=== PATIENT | female | born 1990 | race Caucasian/White ===

== ENCOUNTER 2017-01-09 09:58 | Emergency (ER) | payer MEDICAID, OTHER ==
[~2017-01-09] VITALS: Ht 160 cm; Wt 60.0 kg
[2017-01-09 09:59] VITALS: BP 127/70; PULSE 80; RESP 16; TEMP 98; O2SAT 96
--- NOTE | 2017-01-09 10:49 | PD ---
HPI Chief Complaint: Related Problem Time Seen by Provider: 10:20 Travel History International Travel<30 days: No Contact w/Intl Traveler<30days: No Traveled to known affect area: No History of Present Illness HPI This is a 26-year-old female who presents to the emergency department with bleeding in the setting of early . Patient reports she's had an ultrasound in this at 6 weeks which was normal. Currently she is 10 weeks . This morning she woke up and was bleeding and had a large amount of blood overnight. She says she's continued to have bleeding here in the emergency department. She's changed one pad this morning. She also reports lower abdominal cramping, moderate severity, intermittent, with no associated lightheadedness or dizziness. She's been twice in the past and has 2 children. [facility] Past Medical History Medical History: Denies Significant Hx Tetanus Vaccination: Unknown Influenza Vaccination: Yes ?: LMP: OCT 2016 Past Surgical History Surgical History: No Previous Surgery Social History Alcohol Use: No Tobacco Use: No Substance Use: No Allergies-Medications (Allergen,Severity, Reaction): Coded Allergies: No Known Allergies (Unverified , 01/09/17) Reported Meds & Prescriptions Reported Meds & Active Scripts Active No Active Prescriptions or Reported Medications Review of Systems Except as stated in HPI: all other systems reviewed are Neg Physical Exam Narrative GENERAL:Well appearing, no acute distress SKIN: Warm and dry. HEAD: Atraumatic. Normocephalic. EYES: Pupils equal and round. No injection or drainage. ENT: Moist mucous membranes NECK: Trachea midline. CARDIOVASCULAR: Regular rate and rhythm. No murmur appreciated. RESPIRATORY: Clear to auscultation. Breath sounds equal bilaterally. GASTROINTESTINAL: Abdomen soft, mildly tender to palpation in the lower abdomen with no rebound or guarding. MUSCULOSKELETAL: No obvious deformities. NEUROLOGICAL: Awake and alert. No obvious cranial nerve deficits. Moving all extremities. PSYCHIATRIC: Appropriate mood and affect; insight and judgment normal. Data Data Last Documented VS Vital Signs Date Time Temp Pulse Resp B/P Pulse Ox O2 Delivery O2 Flow Rate FiO2 01/09/17 10:22 16 01/09/17 09:59 98.0 80 127/70 96 Room Air Orders Ed Poc Ultrasound (01/09/17 ) Us Pelvis Comp W Transvaginal (01/09/17 ) Beta Hcg (Quant/Titer) (01/09/17 10:32) Cbc No Diff, Includes Plts (01/09/17 10:32) Type And Screen (01/09/17 10:32) Labs Laboratory Tests Test 01/09/17 11:00 White Blood Count 5.4 TH/MM3 Red Blood Count 4.69 MIL/MM3 Hemoglobin 12.0 GM/DL Hematocrit 36.6 % Mean Corpuscular Volume 78.1 FL Mean Corpuscular Hemoglobin 25.5 PG Mean Corpuscular Hemoglobin 32.7 % Concent Red Cell Distribution Width 13.9 % Platelet Count 283 TH/MM3 Mean Platelet Volume 8.0 FL Human Chorionic Gonadotropin, LESS THAN 1 Quant MIU/ML Blood Type A POSITIVE MDM Medical Decision Making Medical Screen Exam Complete: Yes Emergency Medical Condition: Yes Interpretation(s) afebrile, no tachycardia, normotensive no leukocytosis hcg negative Differential Diagnosis , ectopic , threatened miscarriage, incomplete miscarriage, incomplete miscarriage Narrative Course This is a 26-year-old female presents to the emergency department with vaginal bleeding reporting that she is 10 weeks . I performed a bedside ultrasound and didn't appreciate anything in the uterus. HCG level was obtained which was negative. I'm not sure what the circumstances behind this patient's history are, but she is not today does not appear to be a miscarriage, it is likely just her menstrual cycle. Procedures Procedure Narrative [id number] pelvic ultrasound: Uterus was visualized with no gestational sac Diagnosis Primary Impression: Vaginal bleeding Patient Instructions: General Instructions Additional Instructions: If you develop severe abdominal pain, fever, persistent vomiting or inability to eat, heavy vaginal bleeding using more than one pad an hour, lightheadedness , dizziness, chest pain or shortness of breath return to the emergency department immediately. Take Tylenol as needed for pain. Med/Other Pt SpecificInfo: No Change to Meds Scripts No Active Prescriptions or Reported Meds Disposition: 01 DISCHARGE HOME Condition: Stable Linda Curiel MD Jan 09, 2017 10:49
[2017-01-09 11:25] LABS: HEMATOCRIT 36.6 % (35.0-46.0); MEAN CELL VOLUME 78.1 FL (80.0-100.0); MEAN CORPUSCULAR HEMOGLOBIN 25.5 PG (27.0-34.0); MEAN CORPUSCULAR HGB CONC 32.7 % (32.0-36.0); PLATELET COUNT 283 TH/MM3 (150-450); RED BLOOD COUNT 4.69 MIL/MM3 (4.00-5.30); RED CELL DISTRIBUTION WIDTH 13.9 % (11.6-17.2); REVIEW FLAG FINAL; WHITE BLOOD COUNT 5.4 TH/MM3 (4.0-11.0)
[2017-01-09 11:41] LABS: BETA HCG QUANT LESS THAN 1 MIU/ML (0-5)
== END 2017-01-09 12:07 | disposition home or self-care (01) ==
LOC: NEPC 09:58
DX: N93.9 Abnormal uterine and vaginal bleeding, unspecified (principal); R10.30 Lower abdominal pain, unspecified
CPT/HCPCS: 84702; 85027; 86850; 86900; 86901; 99283

== ENCOUNTER 2017-06-13 14:18 | Emergency (ER) | payer OTHER ==
[~2017-06-13] VITALS: Ht 160 cm; Wt 57.0 kg
[2017-06-13 14:32] VITALS: BP 110/77; PULSE 67; RESP 18; TEMP 98.7; O2SAT 98
[2017-06-13] MEDS ORDERED: SODIUM CHLOR 0.9% 1000 ML INJ 1,000 ML IV ONE (14:34)
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
[2017-06-13] MEDS ORDERED: SODIUM CHLORIDE 0.9% FLUSH 10 ML FLUSH IVF PRN (14:45)
[2017-06-13 14:50] VITALS: RESP 18; O2SAT 98
[2017-06-13 15:26] LABS: AUTOMATED NEUTROPHIL # 5.5 TH/MM3 (1.8-7.7); BASOPHIL % 0.4 % (0.0-2.0); EOSINOPHIL % 0.2 % (0.0-4.0); HEMATOCRIT 34.4 % (35.0-46.0); HEMO FLAGS DIFF FINAL; LYMPH % 24.3 % (9.0-44.0); LYMPHOCYTE # 1.9 TH/MM3 (1.0-4.8); MEAN CELL VOLUME 75.3 FL (80.0-100.0); MEAN CORPUSCULAR HEMOGLOBIN 24.1 PG (27.0-34.0); MONO % 6.5 % (0.0-8.0); NEUT % 68.6 % (16.0-70.0); PLATELET COUNT 296 TH/MM3 (150-450); RED BLOOD COUNT 4.57 MIL/MM3 (4.00-5.30); RED CELL DISTRIBUTION WIDTH 15.5 % (11.6-17.2)
[2017-06-13 15:34] LABS: APTT (PATIENT) 29.2 SEC (24.3-30.1); INTERNATIONAL NORMALIZED RATIO 1.1 RATIO; PROTHROMBIN TIME - PATIENT 12.7 SEC (9.8-11.6)
[2017-06-13 15:40] LABS: BLOOD, URINE NEG (NEG); GLUCOSE,URINE NEG (NEG); KETONE, URINE NEG (NEG); MUCUS URINE FEW /lpf (OCC); NITRITE,URINE NEG (NEG); PH, URINE 7.5 (5.0-8.5); SQUAMOUS EPITHELIAL CELL URINE 2 /hpf (0-5); URINE COLOR LIGHT-YELLOW (YELLW/STRAW)
[2017-06-13 15:41] LABS: COMMENT (UR) CULT NOT INDICATED; CULTURE IF INDICATED CULT NOT INDICATED
[2017-06-13 15:43] LABS: AMPHETAMINE, URINE NEG (NEG); BARBITURATES, URINE NEG (NEG); COCAINE, URINE NEG (NEG)
[2017-06-13 15:45] LABS: ALT (GPT) 15 U/L (10-53); ANION GAP 7 MEQ/L (5-15); AST (GOT) 10 U/L (15-37); BICARBONATE 27.3 MEQ/L (21.0-32.0); BLOOD UREA NITROGEN 9 MG/DL (7-18); CHLORIDE 109 MEQ/L (98-107); GLOMERULAR FILTRATION RATE 83 ML/MIN (>89); POTASSIUM 3.6 MEQ/L (3.5-5.1); SODIUM (NA) 143 MEQ/L (136-145)
[2017-06-13 15:47] LABS: ACETAMINOPHEN 42.6 MCG/ML (10.0-30.0); ALKALINE PHOSPHATASE 54 U/L (45-117); TOTAL BILIRUBIN ADULT 0.6 MG/DL (0.2-1.0)
--- NOTE | 2017-06-13 15:49 | RADRPT ---
EXAM DATE/TIME: 06/13/2017 14:34 [facility] COMPARISON: No previous studies available for comparison. INDICATIONS : Syncope MEDICAL HISTORY : None. SURGICAL HISTORY : None. ENCOUNTER: Initial ACUITY: 1 day PAIN SCORE: 0/10 LOCATION: chest FINDINGS: A single view of the chest demonstrates the lungs to be symmetrically aerated without evidence of mas s, infiltrate or effusion. The cardiomediastinal contours are unremarkable. Osseous structures are intact. CONCLUSION: No acute disease. Reed Eller MD on June 13, 2017 at 15:47 Board Certified Radiologist. This report was verified electronically.
[2017-06-13 19:00] VITALS: BP 104/58; PULSE 70; RESP 18; TEMP 98.5; O2SAT 98
[2017-06-13 22:00] VITALS: BP 115/67; PULSE 64; RESP 16; TEMP 98; O2SAT 99
[2017-06-14 06:17] VITALS: BP 98/54; PULSE 73; RESP 18; TEMP 98.6; O2SAT 98
[2017-06-14 10:28] VITALS: BP 98/54; TEMP 98.6
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
--- NOTE | 2017-06-14 14:07 | EKG ---
Date Performed: 06/13/2017 Time Performed: 14:55:03 PTAGE: 26 years EKG: Sinus rhythm NORMAL ECG NO PREVIOUS TRACING DOCTOR: Thang Harp Interpretating Date/Time 06/14/2017 14:05:03
== END 2017-06-14 11:37 | disposition home or self-care (01) ==
LOC: NEPE 14:18 → NEPJ 06-14 11:37
DX: T39.1X2A Poisoning by 4-Aminophenol derivatives, intentional self-harm, initial encounter (principal); F43.25 Adjustment disorder with mixed disturbance of emotions and conduct; R55 Syncope and collapse
CPT/HCPCS: 71010; 80053; 80307; 81001; 83930; 84703; 85025; 85610; 85730; 93005; 99284; J7030

== ENCOUNTER 2018-03-16 07:07 | Emergency (ER) | payer OTHER ==
[~2018-03-16] VITALS: Ht 160 cm; Wt 50.0 kg
[2018-03-16 07:10] VITALS: BP 100/64; PULSE 80; RESP 18; TEMP 98.4; O2SAT 99
[2018-03-16] MEDS ORDERED: SODIUM CHLOR 0.9% 1000 ML INJ 1,000 ML IV ONE (07:18)
--- NOTE | 2018-03-16 07:28 | PD ---
HPI Chief Complaint: Flank/Kidney Pain Time Seen by Provider: 07:18 Travel History International Travel<30 days: No Contact w/Intl Traveler<30days: No Traveled to known affect area: No History of Present Illness HPI 27-year-old female presents with difficulty urinating and low-grade fevers with right low back pain over the past couple of days. She states she tried Tylenol without relief. She denies any other concurrent complaints. She denies specific modifying factors. She denies recurrent history of this. She states she is on the last day of her menstrual cycle and spotting currently. She states her cycle is regular and her last one was a month before this. Quality is sharp. Severity is moderate. PFSH Past Medical History Medical History: Denies Significant Hx Diminished Hearing: No Tetanus Vaccination: Unknown ?: Not LMP: last week Tubal Ligation: Yes Past Surgical History Gynecologic Surgery: Yes (TUBAL) Social History Alcohol Use: No Tobacco Use: No Substance Use: No Allergies-Medications (Allergen,Severity, Reaction): Coded Allergies: No Known Allergies (Unverified Adverse Reaction, Unknown, 03/16/18) Reported Meds & Prescriptions Reported Meds & Active Scripts Active Keflex (Cephalexin) 500 Mg Cap 500 Mg PO Q12H 7 Days Review of Systems Except as stated in HPI: all other systems reviewed are Neg Physical Exam Narrative GENERAL: 27-year-old female in no apparent distress SKIN: Focused skin assessment warm/dry. HEAD: Atraumatic. Normocephalic. EYES: Pupils equal and round. No scleral icterus. No injection or drainage. ENT: No nasal bleeding or discharge. Mucous membranes pink and moist. NECK: Trachea midline. CARDIOVASCULAR: Regular rate and rhythm. RESPIRATORY: No accessory muscle use. Clear to auscultation. Breath sounds equal bilaterally. GASTROINTESTINAL: Abdomen soft, non-tender, nondistended. Back: No CVA tenderness, no midline pain MUSCULOSKELETAL: No obvious deformities. No clubbing. No cyanosis. No edema. NEUROLOGICAL: Awake and alert. No obvious cranial nerve deficits. Motor grossly within normal limits. Normal speech. PSYCHIATRIC: Appropriate mood and affect; insight and judgment normal. Data Data Last Documented VS Vital Signs Date Time Temp Pulse Resp B/P (MAP) Pulse Ox O2 Delivery O2 Flow Rate FiO2 03/16/18 07:10 98.4 80 18 100/64 (76) 99 Orders Orders Complete Blood Count With Diff (03/16/18 07:18) Comprehensive Metabolic Panel (03/16/18 07:18) Urinalysis - C+S If Indicated (03/16/18 07:18) Ecg Monitoring (03/16/18 07:18) Iv Access Insert/Monitor (03/16/18 07:18) Ketorolac Inj (Toradol Inj) (03/16/18 07:30) Sodium Chloride 0.9% Flush (Ns Flush) (03/16/18 07:30) Sodium Chlor 0.9% 1000 Ml Inj (Ns 1000 M (03/16/18 07:18) Ed Urine Pregnancytest Poc (03/16/18 07:18) Ct Abd/Pel W/O Iv Contrast (03/16/18 ) Urine Culture (03/16/18 07:30) Ceftriaxone Inj (Rocephin Inj) (03/16/18 09:45) Ed Discharge Order (03/16/18 09:47) Labs Laboratory Tests Test 03/16/18 07:30 White Blood Count 8.0 TH/MM3 Red Blood Count 4.65 MIL/MM3 Hemoglobin 11.2 GM/DL Hematocrit 34.4 % Mean Corpuscular Volume 74.0 FL Mean Corpuscular Hemoglobin 24.2 PG Mean Corpuscular Hemoglobin Concent 32.7 % Red Cell Distribution Width 15.3 % Platelet Count 307 TH/MM3 Mean Platelet Volume 7.5 FL Neutrophils (%) (Auto) 77.3 % Lymphocytes (%) (Auto) 16.3 % Monocytes (%) (Auto) 5.2 % Eosinophils (%) (Auto) 0.9 % Basophils (%) (Auto) 0.3 % Neutrophils # (Auto) 6.2 TH/MM3 Lymphocytes # (Auto) 1.3 TH/MM3 Monocytes # (Auto) 0.4 TH/MM3 Eosinophils # (Auto) 0.1 TH/MM3 Basophils # (Auto) 0.0 TH/MM3 CBC Comment DIFF FINAL Differential Comment Urine Color YELLOW Urine Turbidity CLOUDY Urine pH 5.5 Urine Specific [place] 1.019 Urine Protein 30 mg/dL Urine Glucose (UA) NEG mg/dL Urine Ketones NEG mg/dL Urine Occult Blood MOD Urine Nitrite NEG Urine Bilirubin NEG Urine Urobilinogen LESS THAN 2.0 MG/DL Urine Leukocyte Esterase LARGE Urine RBC 143 /hpf Urine WBC /hpf Urine WBC Clumps MANY Urine Squamous Epithelial Cells 9 /hpf Urine Bacteria MOD /hpf Urine Mucus MANY /lpf Microscopic Urinalysis Comment CULTURE INDICATED Blood Urea Nitrogen 8 MG/DL Creatinine 0.82 MG/DL Random Glucose 77 MG/DL Total Protein 7.2 GM/DL Albumin 3.7 GM/DL Calcium Level 8.5 MG/DL Alkaline Phosphatase 51 U/L Aspartate Amino Transf (AST/SGOT) 7 U/L Alanine Aminotransferase (ALT/SGPT) 13 U/L Total Bilirubin 0.4 MG/DL Sodium Level 139 MEQ/L Potassium Level 4.1 MEQ/L Chloride Level 107 MEQ/L Carbon Dioxide Level 26.7 MEQ/L Anion Gap 5 MEQ/L Estimat Glomerular Filtration Rate 84 ML/MIN MDM Medical Decision Making Medical Screen Exam Complete: Yes Emergency Medical Condition: Yes Medical Record Reviewed: Yes (Past history confirmed) Interpretation(s) CBC & BMP Diagram 03/16/18 07:30 Total Protein 7.2, Albumin 3.7, Calcium Level 8.5, Alkaline Phosphatase 51, Aspartate Amino Transf (AST/SGOT) 7 L, Alanine Aminotransferase (ALT/SGPT) 13, Total Bilirubin 0.4 Last 24 hours Impressions Abdomen/Pelvis CT 03/16/18 0000 Signed Impressions: Service Date/Time: Friday, March 16, 2018 08:29 - CONCLUSION: 1. No definite abnormality is identified to explain the right flank pain. Appendix is normal and no renal stones are identified. 2. As described above, there are 3 calcifications in the inferior pelvis, 2 of which clearly are not associated with the distal ureter and one which is indeterminant. I believe it is likely too inferiorly located to be associated with the distal ureter but the distal ureter is not seen in the pelvis secondary to a paucity of intrapelvic fat. If needed, we could perform intravenous contrast enhanced CT with delayed imaging to determine if this is associated with the distal ureter. Angelo Tierney MD ua with uti Differential Diagnosis Stone, UTI, , cyst Narrative Course Will check blood work, urinalysis, test and proceed with CT imaging if beta is negative. ED workup with UTI. CT with possible 4 mm stone, patient has normal renal function, no leukocytosis or fever and even if this is a kidney stone it should pass on its own. I do not think patient needs additional radiation and contrast to confirm this. Patient updated and agrees to plan. Patient denies any new complaints and states that they are feeling better. Patient happy with care, all questions answered. Patient knows that follow up is incumbent on them and to return to the emergency room immediately if new or worsening symptoms develop. Patient given strict return precautions, vitals reviewed and are normal , agrees to further workup as an outpatient. Diagnosis Primary Impression: UTI (urinary tract infection) Qualified Codes: N39.0 - Urinary tract infection, site not specified Additional Impression: Back pain Qualified Codes: M54.5 - Low back pain Patient Instructions: General Instructions Additional Instructions: return as needed, follow with primary next 1-2 days, tylenol as needed, keep hydrated Med/Other Pt SpecificInfo: Prescription(s) given Scripts Cephalexin (Keflex) 500 Mg Cap 500 MG PO Q12H for Infection for 7 Days, #14 CAP 0 Refills Prov: Ifrah Jenkins MD 03/16/18 Disposition: 01 DISCHARGE HOME Condition: Stable Ifrah Jenkins MD March 16, 2018 07:28
[2018-03-16] MEDS ORDERED: KETOROLAC TROMETHAMINE 30 MG/ML (IVP) VIAL IV PUSH ONE (07:30)
[2018-03-16] MEDS ORDERED: SODIUM CHLORIDE 0.9% FLUSH 10 ML FLUSH IVF PRN (07:30)
[2018-03-16 07:40] LABS: AUTOMATED NEUTROPHIL # 6.2 TH/MM3 (1.8-7.7); BASOPHIL % 0.3 % (0.0-2.0); EOSINOPHIL # 0.1 TH/MM3 (0-0.4); EOSINOPHIL % 0.9 % (0.0-4.0); HEMATOCRIT 34.4 % (35.0-46.0); HEMOGLOBIN 11.2 GM/DL (11.6-15.3); LYMPH % 16.3 % (9.0-44.0); LYMPHOCYTE # 1.3 TH/MM3 (1.0-4.8); MEAN CORPUSCULAR HEMOGLOBIN 24.2 PG (27.0-34.0); MEAN CORPUSCULAR HGB CONC 32.7 % (32.0-36.0); MEAN PLATELET VOLUME 7.5 FL (7.0-11.0); MONO % 5.2 % (0.0-8.0); MONOCYTE # 0.4 TH/MM3 (0-0.9); NEUT % 77.3 % (16.0-70.0); PLATELET COUNT 307 TH/MM3 (150-450); RED BLOOD COUNT 4.65 MIL/MM3 (4.00-5.30); RED CELL DISTRIBUTION WIDTH 15.3 % (11.6-17.2)
[2018-03-16 07:55] LABS: ALBUMIN 3.7 GM/DL (3.4-5.0); ALT (GPT) 13 U/L (10-53); AST (GOT) 7 U/L (15-37); BICARBONATE 26.7 MEQ/L (21.0-32.0); BLOOD UREA NITROGEN 8 MG/DL (7-18); CALCIUM 8.5 MG/DL (8.5-10.1); CHLORIDE 107 MEQ/L (98-107); CREATININE 0.82 MG/DL (0.50-1.00); GLOMERULAR FILTRATION RATE 84 ML/MIN (>89); GLUCOSE,RANDOM 77 MG/DL (74-106); SODIUM (NA) 139 MEQ/L (136-145)
[2018-03-16 07:57] LABS: ALKALINE PHOSPHATASE 51 U/L (45-117); TOTAL BILIRUBIN ADULT 0.4 MG/DL (0.2-1.0); TOTAL PROTEIN 7.2 GM/DL (6.4-8.2)
[2018-03-16 07:59] LABS: BACTERIA, URINE MOD /hpf; BILIRUBIN, URINE NEG (NEG); BLOOD, URINE MOD (NEG); GLUCOSE,URINE NEG (NEG); KETONE, URINE NEG (NEG); MUCUS URINE MANY /lpf (OCC); NITRITE,URINE NEG (NEG); PH, URINE 5.5 (5.0-8.5); SQUAMOUS EPITHELIAL CELL URINE 9 /hpf (0-5); URINE COLOR YELLOW (YELLW/STRAW); URINE LEUKOCYTE ESTERASE LARGE (NEG); WHITE BLOOD CELL CLUMPS MANY
--- NOTE | 2018-03-16 09:29 | RADRPT ---
EXAM DATE/TIME: 03/16/2018 08:29 [facility] COMPARISON: No previous studies available for comparison. INDICATIONS : Right flank pain for 2 days ORAL CONTRAST: No oral contrast ingested. RADIATION DOSE: 3.76 CTDIvol (mGy) MEDICAL HISTORY : None SURGICAL HISTORY : Tubal ligation. ENCOUNTER: Initial ACUITY: 2 days PAIN SCALE: 5/10 LOCATION: Right flank TECHNIQUE: Volumetric scanning of the abdomen and pelvis was performed. Using automated exposure control and ad justment of the mA and/or kV according to patient size, radiation dose was kept as low as reasonably achievable to obtain optimal diagnostic quality images. DICOM format image data is available electro nically for review and comparison. FINDINGS: LOWER LUNGS: The visualized lower lungs are clear. LIVER: Homogeneous density without lesion. There is no dilation of the biliary tree. No calcified gallston es. SPLEEN: Normal size without lesion. PANCREAS: Within normal limits. KIDNEYS: Normal in size and shape. There is no mass, stone, or hydronephrosis. No hydroureter is present. The re are 3 calcifications in the inferior right pelvis. The 2 more inferior and smaller calcifications are definitely not associated with the ureter but the more superior measuring 4 mm is in an uncertain location. Based on the anatomic location I feel it is unlikely to be associated with the ureter. ADRENAL GLANDS: Within normal limits. VASCULAR: There is no aortic aneurysm. BOWEL/MESENTERY: The stomach, small bowel, and colon demonstrate no acute abnormality. There is no free intraperitone al air or fluid. Appendix is normal. ABDOMINAL WALL: Within normal limits. RETROPERITONEUM: There is no lymphadenopathy. BLADDER: No wall thickening or mass. REPRODUCTIVE: Within normal limits. INGUINAL: There is no lymphadenopathy or hernia. MUSCULOSKELETAL: Within normal limits for patient age. CONCLUSION: 1. No definite abnormality is identified to explain the right flank pain. Appendix is normal and no r enal stones are identified. 2. As described above, there are 3 calcifications in the inferior pelvis, 2 of which clearly are not associated with the distal ureter and one which is indeterminant. I believe it is likely too inferior ly located to be associated with the distal ureter but the distal ureter is not seen in the pelvis se condary to a paucity of intrapelvic fat. If needed, we could perform intravenous contrast enhanced CT with delayed imaging to determine if this is associated with the distal ureter. Angelo Tierney MD on March 16, 2018 at 9:23 Board Certified Radiologist. This report was verified electronically.
[2018-03-16] MEDS ORDERED: CEPH-460 PO (09:35)
[2018-03-16] MEDS ORDERED: cefTRIAXone INJ 1,000 MG in SODIUM CHLORIDE 0.9% INJ 100 ML IV ONE (09:45)
[2018-03-16 10:43] VITALS: BP 103/53
== END 2018-03-16 10:53 | disposition home or self-care (01) ==
LOC: NEPC 07:07
DX: N39.0 Urinary tract infection, site not specified (principal); M54.5 Low back pain
CPT/HCPCS: 74176; 80053; 81001; 84703; 85025; 87077; 87086; 87186; 96361; 96365; 96375; 99284; J0696; J1885; J7030

== ENCOUNTER 2018-04-21 21:35 | Emergency (ER) | payer SELFPAY ==
[~2018-04-21 21:35] MED LIST: CEPH-460 PO
[2018-04-21 21:38] VITALS: BP 110/56; PULSE 102; RESP 15; TEMP 98.8; O2SAT 100
[2018-04-21 21:56] VITALS: BP 126/72; PULSE 63; RESP 16; O2SAT 100
[2018-04-21] MEDS ORDERED: IBUPROFEN 800 MG TAB PO ONE (22:30)
[2018-04-21] MEDS ORDERED: ACETAMIN 325 MG/BUTALBITAL 50 MG/CAFFEINE 40 MG TAB PO ONE (22:30)
[2018-04-21] MEDS ORDERED: traMADol HCL 50 MG TAB PO ONE (22:30)
[2018-04-21 23:00] VITALS: BP 119/64; PULSE 84; RESP 16; O2SAT 97
--- NOTE | 2018-04-21 23:41 | PD ---
HPI . headache Chief Complaint: Headache Time Seen by Provider: 21:53 Travel History International Travel<30 days: No Contact w/Intl Traveler<30days: No Traveled to known affect area: No History of Present Illness HPI Pt had sudden onset of headache right temporal area to right occiput area pain came on wihtout aura nor warning or stressful event denies SOB no CP . No visual changes but she did vomit out of pain , pt reports Surg hx of tubiligation and no risk of pregnacy, Pt has no history of headaches,, she took ibuprofen without relief, no family history of CVA or brain tumors PFSH Past Medical History Medical History: Denies Significant Hx Diminished Hearing: No Influenza Vaccination: Yes ?: Not LMP: 04/08 : 4 Para: 4 Tubal Ligation: Yes Past Surgical History Gynecologic Surgery: Yes (TUBAL) Social History Alcohol Use: No Tobacco Use: No Substance Use: No Allergies-Medications (Allergen,Severity, Reaction): Coded Allergies: No Known Allergies (Unverified Adverse Reaction, Unknown, 04/21/18) Reported Meds & Prescriptions Reported Meds & Active Scripts Active Ibuprofen 600 Mg Tab 600 Mg PO Q6H PRN Fioricet (Zmsppmmyss-Dodaylcuagkzy-Fuoeojjc) 50-300-40 Mg Cap 1 Cap PO Q4H PRN Review of Systems Except as stated in HPI: all other systems reviewed are Neg Physical Exam Narrative GENERAL: palpation of her right religion area and right occiput recreate the pain SKIN: Warm and dry. HEAD: Atraumatic. Normocephalic. EYES: Pupils equal and round. No scleral icterus. No injection or drainage. ENT: No nasal bleeding or discharge. Mucous membranes pink and moist. NECK: Trachea midline. No JVD. CARDIOVASCULAR: Regular rate and rhythm. RESPIRATORY: No accessory muscle use. Clear to auscultation. Breath sounds equal bilaterally. GASTROINTESTINAL: Abdomen soft, non-tender, nondistended. Hepatic and splenic margins not palpable. MUSCULOSKELETAL: Extremities without clubbing, cyanosis, or edema. No obvious deformities. NEUROLOGICAL: Awake and alert. No obvious cranial nerve deficits. Motor grossly within normal limits. Five out of 5 muscle strength in the arms and legs. Normal speech. PSYCHIATRIC: Appropriate mood and affect; insight and judgment normal. Data Data Last Documented VS Vital Signs Date Time Temp Pulse Resp B/P (MAP) Pulse Ox O2 Delivery O2 Flow Rate FiO2 04/22/18 00:39 04/21/18 23:00 84 16 97 Room Air 04/21/18 21:38 98.8 Orders Orders Vllv-Rahtm-Movp 325-50-40 Mg (Fioricet 3 (04/21/18 22:30) Tramadol (Ultram) (04/21/18 22:30) Ibuprofen (Motrin) (04/21/18 22:30) Ct Brain W/O Iv Contrast(Rout) (04/21/18 ) MDM Medical Decision Making Medical Screen Exam Complete: Yes Emergency Medical Condition: Yes Differential Diagnosis pt has SAHA migraine vs tension vs sinus vs cluster vs tumor vs SAH Narrative Course I tried symptomatic treatment with fioricet and tramdol but no relief, then forced to do CT head ( risk benefit or radiation vs diagnosis rule out ) CT negative no bleed no tumor IM toradol and d/c Diagnosis Primary Impression: Headache Qualified Codes: R51 - Headache Scripts Ibuprofen (Ibuprofen) 600 Mg Tab 600 MG PO Q6H Y for Pain/Inflammation, #40 TAB 0 Refills Prov: Yayo Wallace MD 04/22/18 Nsbrtsoyet-Dltooblqebojt-Jnzfzahd (Fioricet) 50-300-40 Mg Cap 1 CAP PO Q4H Y for HEADACHE, #10 CAP 0 Refills Prov: Yayo Wallace MD 04/22/18 Disposition: 01 DISCHARGE HOME Condition: Good Yayo Wallace MD Apr 21, 2018 23:41
--- NOTE | 2018-04-22 00:03 | RADRPT ---
EXAM DATE: 04/21/2018 11:40 PM EDT AGE/SEX: 27 years / Female INDICATIONS: Cephalgia. CLINICAL DATA: This is the patient's initial encounter. Patient reports that signs and symptoms have been present for 1 day and indicates a pain score of 5/10. MEDICAL/SURGICAL HISTORY: None. . RADIATION DOSE: 35.53 CTDI (mGy) COMPARISON: No prior exams available for comparison. TECHNIQUE: CT of the head without contrast. Using automated exposure control and adjustment of the mA and/or kV according to patient size, radiation dose was kept as low as reasonably achievable to ob tain optimal diagnostic quality images. FINDINGS: Cerebrum: The ventricles are normal for age. No evidence of midline shift, mass lesion, hemorrhage or acute infarction. No extraaxial fluid collections are seen. Posterior Fossa: The cerebellum and brainstem are intact. The 4th ventricle is midline. The cerebe llopontine angle is unremarkable. Extracranial: The visualized portion of the orbits is intact. Skull: The calvaria is intact. No evidence of skull fracture. CONCLUSION: 1. Negative head CT. Electronically signed by: Sudhakar Cole MD 04/22/2018 12:01 AM EDT
[2018-04-22] MEDS ORDERED: IBUP-232 PO (00:31)
[2018-04-22] MEDS ORDERED: BUTA1CAP PO (00:31)
== END 2018-04-22 00:43 | disposition home or self-care (01) ==
LOC: NEPE 21:35
DX: R51 Headache (principal)
CPT/HCPCS: 70450